=== PATIENT | female | born 1970 | race Caucasian/White ===

== ENCOUNTER 2020-12-18 17:54 | Emergency (ER) | payer BC ==
[~2020-12-18] VITALS: Ht 162.6 cm; Wt 89.8 kg
[~2020-12-18 17:54] MED LIST: BACTRIM DS TAB1 EACH PO; DIPHENHYDRAMINE25 M3 PO; DOXYCYCLINE 10100 M1; DOXYCYCLINE 10100 MG PO; HYDROCODONE-AP1 EAC6 PO; IBUPROFEN 600600 M1; KEFLEX500 MG PO; NORCO 5-325 TA1 EACH PO; PREDNISONE 20 M20 MG PO; PREDNISONE50 MG PO; VICODIN 5-5001 EACH PO; otc allergy med
[2020-12-18] MEDS ORDERED: KEFLEX750 MG PO (21:06)
[2020-12-18 21:24] VITALS: BP 128/92
== END 2020-12-18 21:25 | disposition home or self-care (01) ==
LOC: ER 17:54
DX: L03.113 Cellulitis of right upper limb (principal); Z90.710 Acquired absence of both cervix and uterus; F17.210 Nicotine dependence, cigarettes, uncomplicated; Z88.5 Allergy status to narcotic agent; Z88.8 Allergy status to other drugs, medicaments and biological substances